=== PATIENT | male | born 1955 | race Caucasian/White ===

== ENCOUNTER → 2017-07-04 | Outpatient (CLI) | payer BC ==
[2017-07-04 12:52] LABS: MEAN CORPUSCULAR HEMOGLOBIN 31.7 pg (27.0-33.0); MEAN CORPUSCULAR HGB CONC 34.8 g/dl (32.0-36.5); MEAN CORPUSCULAR VOLUME 91.2 fl (80.0-96.0); WHITE BLOOD COUNT 5.2 K/mm3 (4.0-10.0)
[2017-07-04 14:32] LABS: ALBUMIN 4.1 GM/DL (3.2-5.2); ALBUMIN/GLOBULIN RATIO 1.52 (1.00-1.93); ALKALINE PHOSPHATASE 49 U/L (45-117); ALT/SGPT 35 U/L (12-78); ANION GAP 7 MEQ/L (8-16); AST/SGOT 15 U/L (15-37); BLOOD UREA NITROGEN 16 MG/DL (7-18); CALCIUM LEVEL 9.3 MG/DL (8.8-10.2); CARBON DIOXIDE LEVEL 29 MEQ/L (21-32); CHLORIDE LEVEL 105 MEQ/L (98-107); CHOLESTEROL LEVEL 176 MG/DL (<200); CREATININE FOR GFR 1.08 MG/DL (0.70-1.30); GLOMERULAR FILTRATION RATE > 60.0 (>49); GLUCOSE, FASTING 98 MG/DL (80-110); POTASSIUM SERUM 4.8 MEQ/L (3.5-5.1); SODIUM LEVEL 141 MEQ/L (136-145); TOTAL PROTEIN 6.8 GM/DL (6.4-8.2); TRIGLYCERIDES LEVEL 108 MG/DL (<150)
== END ==
LOC: M LAB 11:47
PROVIDERS: ATTEND Family Medicine
DX: I48.0 Paroxysmal atrial fibrillation (principal)

== ENCOUNTER → 2018-07-31 | Outpatient (CLI) | payer BC ==
[2018-07-31 08:41] LABS: HEMATOCRIT 41.3 % (42.0-52.0); MEAN CORPUSCULAR HEMOGLOBIN 31.3 pg (27.0-33.0); MEAN CORPUSCULAR HGB CONC 33.9 g/dl (32.0-36.5); MEAN CORPUSCULAR VOLUME 92.2 fl (80.0-96.0); PLATELET COUNT, AUTOMATED 223 10^3/uL (150-450); RED BLOOD COUNT 4.48 10^6/uL (4.30-6.10); RED CELL DISTRIBUTION WIDTH 12.6 % (11.5-14.5); WHITE BLOOD COUNT 5.4 10^3/uL (4.0-10.0)
[2018-07-31 09:11] LABS: ALBUMIN/GLOBULIN RATIO 1.54 (1.00-1.93); ALKALINE PHOSPHATASE 57 U/L (45-117); ALT/SGPT 32 U/L (12-78); ANION GAP 8 MEQ/L (8-16); AST/SGOT 18 U/L (7-37); BILIRUBIN,TOTAL 0.9 MG/DL (0.2-1.0); BLOOD UREA NITROGEN 18 MG/DL (7-18); CALCIUM LEVEL 8.8 MG/DL (8.8-10.2); CARBON DIOXIDE LEVEL 27 MEQ/L (21-32); CHLORIDE LEVEL 106 MEQ/L (98-107); CHOLESTEROL LEVEL 174 MG/DL (<200); CHOLESTEROL RISK RATIO 2.806 (<5); CREATININE FOR GFR 1.07 MG/DL (0.70-1.30); FREE T4 0.93 NG/DL (0.76-1.46); GLOMERULAR FILTRATION RATE > 60.0 (>49); GLUCOSE, FASTING 108 MG/DL (70-100); HDL CHOLESTEROL 62 MG/DL (>40); LDL CHOLESTEROL 90 MG/DL (<100); NON-HDL-C 112 MG/DL; POTASSIUM SERUM 4.3 MEQ/L (3.5-5.1); PSA SCREENING 0.89 NG/ML (< 4.0); SODIUM LEVEL 141 MEQ/L (136-145); THYROID STIMULATING HORMONE 0.852 uIU/ML (0.358-3.740); TOTAL PROTEIN 6.6 GM/DL (6.4-8.2); TRIGLYCERIDES LEVEL 112 MG/DL (<150)
== END ==
LOC: M LAB 07:55
DX: I48.0 Paroxysmal atrial fibrillation (principal); Z12.5 Encounter for screening for malignant neoplasm of prostate; E78.49 Other hyperlipidemia
CPT/HCPCS: 84443

== ENCOUNTER → 2018-12-25 | Outpatient (CLI) | payer BC ==
--- NOTE | 2018-12-25 16:12 | REP ---
Clinical: Thoracic aortic aneurysm. Technique: Axial noncontrast images from the thoracic inlet to the upper abdomen with coronal and sagittal re-formations. Findings: Evaluation of the thoracic aorta demonstrates ascending aneurysmal dilatation. Measurements based on coronal oblique images demonstrate the mid ascending aorta diameter at 4.9 cm diameter. The aorta measures approximately 3.3 cm maximal diameter at the level of the aortic annulus and approximately 3.5 cm maximal diameter at the sinotubular junction, beginning to taper to 4.0 cm maximal diameter just below the origin of the brachiocephalic artery. The descending thoracic aorta measures 2.5 cm diameter. There is very minimal calcified atheromatous plaque at the origin of the left common carotid and left subclavian arteries as well as small focal plaque along the mid descending thoracic aorta. The aortic contour is otherwise smooth and without surrounding inflammatory change. Pulmonary vasculature appears normal. Heart and pericardium are unremarkable. No significant axillary, hilar, or mediastinal adenopathy is appreciated. The the tip of the a subtle hypoechoic nodule is suggested in the left thyroid lobe. The bilateral lung hernandez are well-aerated, relatively symmetric and essentially clear. A single calcified granuloma is identified in the perihilar left lower lobe. No consolidation, significant nodule, or mass lesion appreciated. The tracheobronchial tree is patent and without significant bronchiectasis. No pleural effusion. Musculoskeletal structures are intact and relatively age-appropriate. Limited upper abdomen demonstrates normal bilateral adrenal glands. Impression: 1. Ascending aortic aneurysm measuring up to 4.9 cm diameter as detailed above. 2. No significant acute mediastinal or pleuroparenchymal process appreciated. Electronically Signed by Rell Patel MD 12/25/2018 04:03 P
== END ==
LOC: M RAD 14:26
PROVIDERS: ATTEND Internal Medicine Cardiovascular Disease
DX: I71.2 Thoracic aortic aneurysm, without rupture (principal)

== ENCOUNTER → 2019-08-21 | Outpatient (REF) | payer BC ==
[2019-08-21 11:16] LABS: HEMATOCRIT 43.4 % (42.0-52.0); MEAN CORPUSCULAR HEMOGLOBIN 32.1 pg (27.0-33.0); MEAN CORPUSCULAR HGB CONC 34.6 g/dl (32.0-36.5); MEAN CORPUSCULAR VOLUME 92.9 fl (80.0-96.0); PLATELET COUNT, AUTOMATED 208 10^3/uL (150-450); RED BLOOD COUNT 4.67 10^6/uL (4.30-6.10); WHITE BLOOD COUNT 6.1 10^3/uL (4.0-10.0)
[2019-08-21 11:43] LABS: ALBUMIN 4.1 GM/DL (3.2-5.2); ALT/SGPT 34 U/L (12-78); BILIRUBIN,TOTAL 1.1 MG/DL (0.2-1.0); BLOOD UREA NITROGEN 19 MG/DL (7-18); CALCIUM LEVEL 9.6 MG/DL (8.8-10.2); CARBON DIOXIDE LEVEL 26 MEQ/L (21-32); CHLORIDE LEVEL 106 MEQ/L (98-107); CHOLESTEROL LEVEL 191 MG/DL (<200); CHOLESTEROL RISK RATIO 2.938 (<5); CREATININE FOR GFR 1.09 MG/DL (0.70-1.30); GLOMERULAR FILTRATION RATE > 60.0 (>49); GLUCOSE, FASTING 96 MG/DL (70-100); HDL CHOLESTEROL 65 MG/DL (>40); LDL CHOLESTEROL 98 MG/DL (<100); NON-HDL-C 126 MG/DL; POTASSIUM SERUM 4.3 MEQ/L (3.5-5.1); SODIUM LEVEL 138 MEQ/L (136-145); TRIGLYCERIDES LEVEL 142 MG/DL (<150)
[2019-08-21 13:31] LABS: HEMOGLOBIN A1c 5.8 %
== END ==
LOC: M SFHCPLAZ 09:25
PROVIDERS: ATTEND Family Medicine
DX: I48.0 Paroxysmal atrial fibrillation (principal); R73.03 Prediabetes; E78.49 Other hyperlipidemia; Z12.5 Encounter for screening for malignant neoplasm of prostate

== ENCOUNTER → 2020-01-19 | Outpatient (CLI) | payer BC ==
--- NOTE | 2020-01-20 14:09 | REP ---
Clinical: Thoracic aortic aneurysm. Followup. Technique: Axial noncontrast images from the thoracic inlet to the upper abdomen with coronal and sagittal re-formations. Comparison: 12/25/2018. Findings: Aneurysmal dilatation of the ascending thoracic aorta is unchanged compared to prior examination. The mid ascending thoracic aorta again measures 4.9 x 5.0 cm maximal diameter and smoothly tapers through the thoracic aortic arch with the descending thoracic aorta measuring 2.6 cm maximal diameter. Very minimal atherosclerotic plaque again identified at the origin of the left common carotid artery and left subclavian artery as well as small stable calcified plaque along the mid descending thoracic aorta. Findings are essentially unchanged compared to prior examination. Pulmonary vasculature appears normal. No significant mediastinal or hilar adenopathy is appreciated. Tracheobronchial tree is patent and essentially normal. The lung hernandez are relatively well aerated and clear. A small stable 4 mm calcified granuloma in the perihilar left lower lobe (image 47) is again identified. No significant nodule, consolidation or mass lesion noted. No pleural effusion. No pneumothorax. Musculoskeletal structures demonstrate age-related changes without focal acute osseous abnormality. Impression: 1. Stable ascending thoracic aortic aneurysmal dilatation again measuring 4.9 x 5.0 cm maximal diameter. No significant changes from prior examination. 2. No acute mediastinal or pleuroparenchymal process appreciated. Electronically Signed by Rell Patel MD 01/20/2020 02:00 P
== END ==
LOC: M RAD 10:07
PROVIDERS: ATTEND Internal Medicine Cardiovascular Disease
DX: I71.2 Thoracic aortic aneurysm, without rupture (principal)

== ENCOUNTER → 2020-08-04 | Outpatient (REF) | payer BC ==
[2020-08-04 16:43] LABS: HEMATOCRIT 43.3 % (42.0-52.0); HEMOGLOBIN 14.2 g/dl (13.5-17.5); MEAN CORPUSCULAR HEMOGLOBIN 31.4 pg (27.0-33.0); MEAN CORPUSCULAR HGB CONC 32.8 g/dl (32.0-36.5); MEAN CORPUSCULAR VOLUME 95.8 fl (80.0-96.0); PLATELET COUNT, AUTOMATED 218 10^3/uL (150-450); RED BLOOD COUNT 4.52 10^6/uL (4.30-6.10); WHITE BLOOD COUNT 5.9 10^3/uL (4.0-10.0)
[2020-08-04 17:01] LABS: HEMOGLOBIN A1c 5.5 %
[2020-08-04 17:14] LABS: ALBUMIN 4.1 GM/DL (3.2-5.2); ALT/SGPT 35 U/L (12-78); BILIRUBIN,TOTAL 0.9 MG/DL (0.2-1.0); BLOOD UREA NITROGEN 19 MG/DL (7-18); CALCIUM LEVEL 9.5 MG/DL (8.8-10.2); CARBON DIOXIDE LEVEL 29 MEQ/L (21-32); CHLORIDE LEVEL 106 MEQ/L (98-107); CHOLESTEROL LEVEL 191 MG/DL (<200); CHOLESTEROL RISK RATIO 2.808 (<5); CREATININE FOR GFR 1.05 MG/DL (0.70-1.30); FREE T4 1.01 NG/DL (0.76-1.46); GLOMERULAR FILTRATION RATE > 60.0 (>49); GLUCOSE, FASTING 88 MG/DL (70-100); HDL CHOLESTEROL 68 MG/DL (>40); LDL CHOLESTEROL 101 MG/DL (<100); NON-HDL-C 123 MG/DL; POTASSIUM SERUM 4.3 MEQ/L (3.5-5.1); SODIUM LEVEL 140 MEQ/L (136-145); TOTAL PROTEIN 6.9 GM/DL (6.4-8.2); TRIGLYCERIDES LEVEL 108 MG/DL (<150)
== END ==
LOC: M SFHCADAM 13:57
PROVIDERS: ATTEND Family Medicine
DX: I48.0 Paroxysmal atrial fibrillation (principal); E78.49 Other hyperlipidemia; R73.03 Prediabetes; Z12.5 Encounter for screening for malignant neoplasm of prostate

== ENCOUNTER → 2022-06-12 | Outpatient (REF) | payer OTHER ==
[2022-06-12 17:13] LABS: HEMOGLOBIN 13.3 g/dl (13.5-17.5); MEAN CORPUSCULAR HEMOGLOBIN 31.4 pg (27.0-33.0); MEAN CORPUSCULAR HGB CONC 33.3 g/dl (32.0-36.5); MEAN CORPUSCULAR VOLUME 94.3 fl (80.0-96.0); PLATELET COUNT, AUTOMATED 180 10^3/uL (150-450); RED BLOOD COUNT 4.24 10^6/uL (4.30-6.10); WHITE BLOOD COUNT 5.4 10^3/uL (4.0-10.0)
[2022-06-12 17:18] LABS: HEMOGLOBIN A1c 5.5 %
[2022-06-12 17:42] LABS: ALT/SGPT 28 U/L (12-78); BILIRUBIN,TOTAL 0.7 MG/DL (0.2-1.0); BLOOD UREA NITROGEN 20 MG/DL (7-18); CALCIUM LEVEL 9.7 MG/DL (8.8-10.2); CARBON DIOXIDE LEVEL 26 MEQ/L (21-32); CHLORIDE LEVEL 108 MEQ/L (98-107); CHOLESTEROL LEVEL 187 MG/DL (<200); CREATININE FOR GFR 1.03 MG/DL (0.70-1.30); GLOMERULAR FILTRATION RATE > 60.0 (>49); GLUCOSE, FASTING 87 MG/DL (70-100); HDL CHOLESTEROL 62 MG/DL (>40); POTASSIUM SERUM 4.2 MEQ/L (3.5-5.1); SODIUM LEVEL 140 MEQ/L (136-145); TRIGLYCERIDES LEVEL 139 MG/DL (<150)
[2022-06-12 17:43] LABS: ALBUMIN 4.1 GM/DL (3.2-5.2); CHOLESTEROL RISK RATIO 3.016 (<5); FREE T4 0.91 NG/DL (0.76-1.46); LDL CHOLESTEROL 97 MG/DL (<100); MAGNESIUM LEVEL 2.1 MG/DL (1.8-2.4); NON-HDL-C 125 MG/DL; THYROID STIMULATING HORMONE 0.359 uIU/ML (0.358-3.740); TOTAL PROTEIN 6.5 GM/DL (6.4-8.2)
== END ==
LOC: M SFHCADAM 14:03
PROVIDERS: ATTEND Family Medicine
DX: I48.0 Paroxysmal atrial fibrillation (principal); I71.2 Thoracic aortic aneurysm, without rupture; E78.49 Other hyperlipidemia; R73.03 Prediabetes; Z12.5 Encounter for screening for malignant neoplasm of prostate
CPT/HCPCS: 80053; 80061; 83036; 83735; 84439; 84443; 85027; G0103

== ENCOUNTER → 2022-10-26 | Outpatient (CLI) | payer OTHER | LOC: M RAD 06:56 | PROVIDERS: ATTEND Internal Medicine Cardiovascular Disease | DX: I71.21 Aneurysm of the ascending aorta, without rupture (principal) ==

== ENCOUNTER → 2022-12-10 | Outpatient (CLI) | payer OTHER | LOC: M CARPUL 13:52 | PROVIDERS: ATTEND Family Medicine | DX: R06.02 Shortness of breath (principal) ==

== ENCOUNTER → 2023-02-14 | Outpatient (REF) | payer OTHER ==
[2023-02-14 14:47] LABS: HEMATOCRIT 40.8 % (42.0-52.0); HEMOGLOBIN 13.2 g/dl (13.5-17.5); MEAN CORPUSCULAR HEMOGLOBIN 31.1 pg (27.0-33.0); MEAN CORPUSCULAR HGB CONC 32.4 g/dl (32.0-36.5); MEAN CORPUSCULAR VOLUME 96.2 fl (80.0-96.0); PLATELET COUNT, AUTOMATED 207 10^3/uL (150-450); RED BLOOD COUNT 4.24 10^6/uL (4.30-6.10); WHITE BLOOD COUNT 5.4 10^3/uL (4.0-10.0)
[2023-02-14 15:09] LABS: C REACTIVE PROTEIN QUANTITATIV < 0.40 MG/DL (<1.0)
[2023-02-14 15:12] LABS: RHEUMATOID FACTOR QUANT < 3.5 IU/ML (<14)
[2023-02-15 21:09] LABS: ANA (HEP2) Negative (.)
== END ==
LOC: M SFHCADAM 08:10
PROVIDERS: ATTEND Family Medicine
DX: M25.462 Effusion, left knee (principal)

== ENCOUNTER → 2023-02-14 | Outpatient (CLI) | payer OTHER | LOC: M ADAMS 08:21 | PROVIDERS: ATTEND Family Medicine | DX: M17.12 Unilateral primary osteoarthritis, left knee (principal) ==

== ENCOUNTER → 2025-07-29 | Outpatient (CLI) | payer MEDICARE, OTHER ==
[2025-07-29 09:14] LABS: PLATELET COUNT, AUTOMATED 217 10^3/uL (150-450)
[2025-07-29 09:39] LABS: ESTIMATED AVERAGE GLUCOSE 114.0 MG/DL (60-110)
[2025-07-29 09:46] LABS: PSA SCREENING 4.12 NG/ML (< 4.00)
[2025-07-29 09:48] LABS: ALT/SGPT < 9 U/L (7.0-40); AST/SGOT 15 U/L (<34); CALCIUM LEVEL 8.9 MG/DL (8.3-10.6); CARBON DIOXIDE LEVEL 25 MMOL/L (20-31); CHLORIDE LEVEL 107 MMOL/L (98-107); CHOLESTEROL LEVEL 173 MG/DL (<200); CHOLESTEROL RISK RATIO 2.66 (<5); CREATININE FOR GFR 1.06 MG/DL (0.70-1.30); GLOMERULAR FILTRATION RATE 75.0 (>42); LDL CHOLESTEROL 92.5 MG/DL (<100); NON-HDL-C 108.1 MG/DL; POTASSIUM SERUM 4.6 MMOL/L (3.5-5.1); SODIUM LEVEL 139 MMOL/L (136-145); TRIGLYCERIDES LEVEL 78 MG/DL (<150)
[2025-07-29 09:50] LABS: FREE T4 1.13 NG/DL (0.89-1.76)
== END ==
LOC: M LAB 08:53
PROVIDERS: ATTEND Family Medicine
DX: G20.A1 Parkinson's disease without dyskinesia, without mention of fluctuations (principal); G25.0 Essential tremor; E04.1 Nontoxic single thyroid nodule; R73.03 Prediabetes; Z12.5 Encounter for screening for malignant neoplasm of prostate
CPT/HCPCS: 36415; 80053; 80061; 83036; 84439; 84443; 85027; G0103